=== PATIENT | male | born 1990 | race Two or more races ===

== ENCOUNTER 2021-10-14 21:44 | Emergency (ER) | payer OTHER, SELFPAY ==
--- NOTE | ~2021-10-14 | XR_ITS ---
EXAMINATION: XR CHEST CLINICAL INFORMATION: Chest pain COMPARISON: None TECHNIQUE: Frontal view of the chest was obtained. FINDINGS: The lungs are clear with no focal consolidation. No evidence of pneumothorax, pulmonary edema, or pleural effusions. The cardiomediastinal silhouette is unremarkable. No acute osseous findings. XR/XR chest 1V IMPRESSION: No acute cardiopulmonary findings.
--- NOTE | 2021-10-14 21:49 | ECG_ITS ---
Test Reason : CHEST PAIN Blood Pressure : / mmHG Vent. Rate : 097 BPM Atrial Rate : 097 BPM P-R Int : 144 ms QRS Dur : 094 ms QT Int : 328 ms P-R-T Axes : 064 -23 032 degrees QTc Int : 416 ms Normal sinus rhythm with sinus arrhythmia Normal ECG No previous ECGs available Referred By: Generic ED Physician Electronically Signed By:Kishan Guerra
[2021-10-14 21:51] VITALS: BP 165/99; PULSE 97; RESP 18; TEMP 36.5; O2SAT 100; BMI 29.3
[2021-10-14 22:02] LABS: MANUAL DIFF FLAG NO
[2021-10-14 22:04] LABS: Basophils Absolute Auto 0.1 X10*3/uL (0.0-0.2); Basophils Percent Auto 0.5 % (0-2); Eosinophils Absolute Auto 0.3 X10*3/uL (0.0-0.4); Eosinophils Percent Auto 2.9 % (0-4); Hematocrit 48.4 % (42.0-52.0); Imm Gran Abs Auto 0.07 X10*3/uL (0.00-0.03); Imm Gran Pct Auto 0.7 % (0.0-0.4); Lymphocytes Absolute Auto 2.7 X10*3/uL (1.2-4.9); Lymphocytes Percent Auto 25.4 % (20-40); Mean Corpuscular HGB Conc 33.1 g/dl (31.0-36.0); Mean Corpuscular Hemoglobin 28.7 pg (27.0-33.0); Mean Corpuscular Volume 86.7 fL (80.0-98.0); Mean Platelet Volume 10.1 fL (9.4-12.4); Monocytes Absolute Auto 0.8 X10*3/uL (0.1-1.2); Monocytes Percent Auto 7.7 % (2-11); Neutrophils Absolute Auto 6.8 x10*3/uL (2.0-8.3); Neutrophils Percent Auto 62.8 % (45-73); Platelet Count 315 X10*3/uL (160-400); Red Blood Count 5.58 X10*6/uL (4.60-5.80); Red Cell Distribution Width 13.7 % (11.0-16.0); White Blood Count 10.7 X10*3/uL (4.8-10.8)
[2021-10-14 22:20] LABS: Alanine Aminotransferase 50 U/L (0-40); Albumin Level 4.5 g/dL (3.5-5.0); Alkaline Phosphatase 53 U/L (39-117); Anion Gap 12 (12-20); Aspartate Amino Transferase 28 U/L (5-37); Bilirubin Total 0.2 mg/dL (0.0-1.0); Blood Urea Nitrogen 15 mg/dL (9-16); Carbon Dioxide 26 mmol/L (22-29); Chloride 105 mmol/L (96-108); Creatinine Clr Calc Pharmacy 109.6; Estimated Glomerular Filt Rate > 60; Glucose Random 114 mg/dL (60-115); Sodium 139 mmol/L (135-145); Total Protein 7.3 g/dL (6.5-8.0)
[2021-10-14 22:24] LABS: Troponin-I High Sensitivity < 3.5 ng/L (<3.5-35.0)
--- NOTE | 2021-10-15 00:41 | ED_ITS ---
HPI - Chest Pain General Chief Complaint: Chest Pain Stated Complaint: High BP, CP, neck pain Time Seen by Provider: 10/15/21 00:24 Source: patient Mode of arrival: ambulatory Limitations: no limitations History of Present Illness HPI narrative: Patient comes to the emergency room complaining of anxiety, chest pressure, numbness and tingling in hands, hypertension. Patient to have hypertension, takes amlodipine 10 mg and hydrochlorothiazide 25 mg Renetta patient compliant with medications. At this time, patient is asymptomatic Related Data Allergies Allergy/AdvReac Type Severity Reaction Status Date / Time No Known Allergies Allergy Verified 10/14/21 21:50 Review of Systems Review of Systems: Constitutional : No Weight loss, No Fever, No Chills, No Night Sweats, No Fatigue, No Malaise ENT/Mouth : No Hearing loss, No Ear Pain, No Nasal Congestion, No Sinus Pain, No Hoarseness, No sore throat, No Rhinorrhea, No Swallowing Difficulty Eyes: No Eye Pain, No Swelling, No Redness, No Foreign Body, No Discharge, No Vision Changes Cardiovascular : Complaining of chest pressure, no shortness of breath, no dyspnea on exertion, lower extremity edema Respiratory : No Cough, No Sputum, No Wheezing, No Smoke Exposure, No Dyspnea Gastrointestinal : No Nausea, No Vomiting, No Diarrhea, No Constipation, No abdominal Pain, No Hematochezia, No Melena Genitourinary : no irregular bleeding, No Dysuria, No Urinary Frequency, No Hematuria, No Urinary Incontinence, No Urgency, No Flank Pain, No Urinary Flow Changes, No Hesitancy Musculoskeletal : No joint pain, No Myalgias, No Joint Swelling Skin : No Skin Lesions, No rash Neuro : No Weakness, No Numbness, extremity Paresthesias palpable, No Loss of Consciousness, No Dizziness, No Headache Psych : No Anxiety/Panic, No Depression, No SI/HI/AH/VH, No Social Issues, Heme/Lymph: No Bruising, No Bleeding,No Lymphadenopathy Endocrine : No Polyuria, No Polydipsia, No Temperature Intolerance COUNTS INCLUDE 234 BEDS AT THE [facility] Past Medical History Medical History (Updated 10/15/21 @ 00:46 by Beatrice Badillo MD) Hypertension Physical Exam Vital Signs: Vital Signs: Last Vital Signs Temp 97.7 F 10/14/21 21:51 Pulse 97 10/14/21 21:51 Resp 18 10/14/21 21:51 BP 165/99 H 10/14/21 21:51 Pulse Ox 100 10/14/21 21:51 O2 Del Method 10/14/21 21:51 BMI result Body Mass Index 29.3 Const: Other: Appearance: Alert. Oriented X3. No acute distress. Eyes: Pupils equal, round and reactive to light. ENT: Pharynx normal. Neck: Normal inspection. Neck supple. No lymph nodes noted. No crepitus CVS: Normal heart rate and rhythm. Pulses normal. Normal S1 and S2 Respiratory: No respiratory distress. Breath sounds normal. No Wheezing. No rales Abdomen: Soft and nontender. No rigidity. No distention. Skin: Skin warm and dry. Normal skin color. Normal skin turgor. Extremities: No lower extremity edema. No Lacerations. No Rash Neuro: Oriented X 3. No motor deficit. No sensory deficit. Moving all extremities. No slurred speech. CN 2 through 12 grossly intact Psych: calm, cooperative, normal affect Course Course Course Narrative: I discussed the labs imaging and EKG with the patient, no acute findings. Patient likely had anxiety. Patient has a Holter monitor scheduled for December EKG shows sinus rhythm, heart rate 97, no ST segment depression or elevation, no T-wave inversion, QTC 416 MDM - Chest Pain Lab Data Result diagrams: 10/14/21 21:58 10/14/21 21:58 Labs: Lab Results 10/14/21 10/14/21 10/14/21 Range/Units 21:58 21:58 21:58 WBC 10.7 (4.8-10.8) X10*3/uL RBC 5.58 (4.60-5.80) X10*6/uL Hgb 16.0 (14.0-18.0) g/dl Hct 48.4 (42.0-52.0) % MCV 86.7 (80.0-98.0) fL MCH 28.7 (27.0-33.0) pg MCHC 33.1 (31.0-36.0) g/dl RDW 13.7 (11.0-16.0) % Plt Count 315 (160-400) X10*3/uL MPV 10.1 (9.4-12.4) fL Immature Gran % (Auto) 0.7 H (0.0-0.4) % Neut % (Auto) 62.8 (45-73) % Lymph % (Auto) 25.4 (20-40) % Victoria % (Auto) 7.7 (2-11) % Eos % (Auto) 2.9 (0-4) % Baso % (Auto) 0.5 (0-2) % Lymph # (Auto) 2.7 (1.2-4.9) X10*3/uL Victoria # (Auto) 0.8 (0.1-1.2) X10*3/uL Eos # (Auto) 0.3 (0.0-0.4) X10*3/uL Baso # (Auto) 0.1 (0.0-0.2) X10*3/uL Abs Immat Gran (auto) 0.07 H (0.00-0.03) X10*3/uL Absolute Neuts (auto) 6.8 (2.0-8.3) x10*3/uL Absolute Nucleated RBC 0.000 (0.0-0.012) X10*3/uL Nucleated RBC % (auto) 0.0 (0.0-0.2) /100WBC Sodium 139 (135-145) mmol/L Potassium 4.0 (3.3-5.1) mmol/L Chloride 105 (96-108) mmol/L Carbon Dioxide 26 (22-29) mmol/L Anion Gap 12 (12-20) BUN 15 (9-16) mg/dL Creatinine 1.04 (0.5-1.4) mg/dL Estim Creat Clear Calc 109.6 Estimated GFR > 60 Random Glucose 114 (60-115) mg/dL Calcium 9.0 (8.4-10.2) mg/dL Total Bilirubin 0.2 (0.0-1.0) mg/dL AST 28 (5-37) U/L ALT 50 H (0-40) U/L Alkaline Phosphatase 53 (39-117) U/L Troponin I High Sens < 3.5 (<3.5-35.0) ng/L Total Protein 7.3 (6.5-8.0) g/dL Albumin 4.5 (3.5-5.0) g/dL Imaging Data Chest x-ray: Radiologist's impression: The lungs are clear with no focal consolidation. No evidence of pneumothorax, pulmonary edema, or pleural effusions. The cardiomediastinal silhouette is unremarkable. No acute osseous findings. XR/XR chest 1V IMPRESSION: No acute cardiopulmonary findings. Discharge Plan Discharge Clinical Impression: Atypical chest pain, Anxiety Patient Disposition: Home, Self-Care Instructions: Chest Pain (ED), Anxiety (ED) Additional Instructions: Please follow-up with your primary care physician tomorrow. If you have any worsening or new symptoms, please return to the emergency room or call 911
[2021-10-15 00:43] VITALS: BP 132/82; PULSE 85; RESP 16; TEMP 36.5; O2SAT 98
== END 2021-10-15 03:20 | disposition home or self-care (01) ==
LOC: HO.ED 10-15 01:13
PROVIDERS: Emergency Provider Emergency Medicine
DX: R07.89 Other chest pain (principal); F41.9 Anxiety disorder, unspecified; I10 Essential (primary) hypertension
CPT/HCPCS: 36415; 71045; 80053; 84484; 85025; 93005; 99283; 99284

== ENCOUNTER 2022-03-21 20:14 | Emergency (ER) | payer OTHER, SELFPAY ==
[2022-03-21 20:40] VITALS: BP 143/91; PULSE 96; RESP 18; TEMP 36.8; O2SAT 97; BMI 31.6
--- NOTE | 2022-03-21 21:26 | ED.EXTPRO ---
HPI - Extremity Problem General Chief complaint: Extremity Problem Stated complaint: shoulder pain, broken? Time Seen by Provider: 03/21/22 21:25 Source: patient Mode of arrival: ambulatory Limitations: no limitations History of Present Illness HPI Narrative: 32-year-old male presents with right-sided shoulder pain. States that he hurt his shoulder while catching his mother from falling about a month ago. Over the past 2 days the pain has worsened to the point where he can not move his arm. Does not report any repeat injuries or falls. Does not report paresthesia or decreased sensation. Denies fevers, chills, chest pain pressure, weakness or fatigue. MD Complaint: extremity pain Onset (ago): month(s) (1) Pain Consistency: constant Location: right and upper extremity Severity scale (1-10): 9 Quality: aching Relieving factors: rest Exacerbating factors: range of motion and palpation Associated symptoms: denies other symptoms Related Data Previous Rx's Medication Instructions Recorded ketorolac 10 mg tablet 10 mg PO TID PRN pain 5 days #15 03/21/22 tabs prednisone 20 mg tablet 40 mg PO DAILY 5 days #10 tabs 03/21/22 Allergies Allergy/AdvReac Type Severity Reaction Status Date / Time No Known Allergies Allergy Verified 10/14/21 21:50 Review of Systems Review of Systems: Constitutional: No Fever, No Chills Cardiovascular: No Chest Pain, No SOB Respiratory: No Cough, No Dyspnea Gastrointestinal: No Nausea, No Vomiting, No Diarrhea, No abdominal Pain Genitourinary: No Dysuria, No Hematuria Musculoskeletal: positive right shoulder pain, No Myalgias, No Joint Swelling Skin: No Skin lacerations, No rash Neuro: No Weakness, No Numbness, No Paresthesias Yes all other systems are reviewed and are negative [facility] Past Medical History Attestation statement: The following information was validated with the patient. Source: old records reviewed Medical History Hypertension Social History Social History Advance Directives: No Advance Directives Information Provided: No Physical Exam Vital Signs: Vital Signs: Last Vital Signs Temp 98.3 F 03/21/22 20:40 Pulse 96 03/21/22 20:40 Resp 18 03/21/22 20:40 BP 143/91 H 03/21/22 20:40 Pulse Ox 97 03/21/22 20:40 O2 Del Method 03/21/22 20:40 BMI result Body Mass Index 31.6 Appearance: Alert. Oriented X3. Eyes: Pupils equal, round and reactive to light. ENT: Pharynx normal. Neck: Normal inspection. Neck supple. CVS: Normal heart rate and rhythm. Pulses normal. Respiratory: No respiratory distress. Breath sounds normal. Abdomen: Soft and nontender. Skin: Skin warm and dry. Normal skin color. Normal skin turgor. Extremities: Decreased adduction abduction and internal external rotation of the right shoulder. Full flexion-extension of the elbow, and all digits. Neuro: No motor deficit. No sensory deficit. Cranial nerves 2-12 intact. Course Course Course Narrative: 32-year-old male presents with right shoulder pain. Had an injury approximately a month ago that never resolved, and over the past 2 days states to have had the worst pain in his life to the right shoulder. He is unable to fully adduct and abduct the shoulder, and has difficulties with internal external rotation. X-rays completed while he was in the emergency department waiting room shows calcific tendinitis. Patient is afebrile, appears nontoxic, alert oriented x4, has brisk capillary refill to all extremities. Plan is to have patient follow-up with Orthopedics, give IM Toradol, and have patient take steroids to help reduce inflammation Patient verbalized understanding of and agrees to plan of care discharge home. Verbalized understanding of signs and symptoms indicating need for emergent intervention Medications Administered Discontinued Medications Generic Name Dose Route Start Last Admin Trade Name Pollo PRN Reason Stop Dose Admin Ketorolac Tromethamine 30 mg 03/21/22 22:18 03/21/22 22:20 Ketorolac Tromethamine 30 Mg/Ml Vial IM 03/21/22 22:19 30 mg ONCE ONE Administration Medical Decision Making Differential Diagnosis Differential Diagnoses: The differential diagnosis associated with the presentation includes Fracture, dislocation, tendon or ligament deficit, muscular skeletal strain Admission/Observation Consideration of admission/observation: Escalation of care including admission/observation considered Patient does not require admission for this visit Independent Interpretation I performed an independent interpretation of an: Plain X-Ray Radiology Impression Discussion of test interpretation with radiology: I have reviewed the radiologist's reading. Radiologist Impression: EXAMINATION: XR SHOULDER, RIGHT CLINICAL INFORMATION: Right shoulder pain.? COMPARISON: Chest radiograph 10/14/2021.? TECHNIQUE: Three views of the right shoulder. FINDINGS: No acute fractures or malalignment. Amorphous calcifications noted above the greater humeral tuberosity, at the insertion site of the supraspinatus tendon. The visualized right-sided ribs and right lung are within normal limits.? XR/XR shoulder RT min 2V IMPRESSION: 1.? No acute fractures or malalignment. 2.? Amorphous calcifications above the greater humeral tuberosity suggestive of calcific tendinitis. ? Prescription Management I considered prescription management with: Pain Medication Discharge Plan Discharge Clinical Impression: Calcific tendinitis of right shoulder Patient Disposition: Home, Self-Care Instructions: Rotator Cuff Tendinitis (ED), Calcific Tendinitis (ED) Additional Instructions: You were evaluated shoulder pain. X-rays indicate right calcific tendinitis. Please follow-up with orthopedics. I have referred you to [facility]. please call and request an appointment for evaluation. I prescribed Toradol 10 mg every 8 hours as needed for pain management. Do not take Motrin with this medication. Motrin is the same as Advil and ibuprofen. You may take Tylenol 650 mg every 6 hours as needed Consider using ice or heat to help reduce pain. Thank you for choosing this emergency department for evaluation. Please follow-up with primary care physician as needed. Return to the emergency department for any new, concerning, or worsening symptoms. Prescriptions: New ketorolac 10 mg tablet 10 mg PO TID PRN (Reason: pain) 5 Days Qty: 15 0RF Rx Instructions: First IM dose given in the emergency department. prednisone 20 mg tablet 40 mg PO DAILY 5 Days Qty: 10 0RF Referrals: Raquel Isbell PA-C [Physician [facility]] - 1 week (Right calcific tendinitis) Interventions: ED Discharge Assessment Last Done: 03/21/22 22:24 Discharge Date/Time: 03/21/22 22:26
== END 2022-03-21 22:26 | disposition home or self-care (01) ==
PROVIDERS: Emergency Provider Internal Medicine; PCP Pediatrics
DX: M75.31 Calcific tendinitis of right shoulder (principal); Z79.899 Other long term (current) drug therapy
CPT/HCPCS: 73030; 96372; 99283; 99284; J1885

== ENCOUNTER → 2022-03-26 09:17 | Outpatient (BNVA) | payer OTHER, SELFPAY | PROVIDERS: PCP Pediatrics; Visit Provider Physician Assistant | DX: M75.31 Calcific tendinitis of right shoulder (principal) | CPT/HCPCS: 99202; J1040 ==